=== PATIENT | female | born 1995 | race Caucasian/White ===

== ENCOUNTER 2017-02-22 20:53 | Emergency (ER) | payer OTHER | END 2017-02-22 23:41 | disposition home or self-care (01) | LOC: FER 20:53 | DX: S93.601A Unspecified sprain of right foot, initial encounter (principal); Z88.1 Allergy status to other antibiotic agents; Z79.82 Long term (current) use of aspirin; X50.1XXA Overexertion from prolonged static or awkward postures, initial encounter; Y92.830 Public park as the place of occurrence of the external cause | CPT/HCPCS: 73610; 73630; 99283 ==